=== PATIENT | male | born 1965 | race Caucasian/White ===

== ENCOUNTER 2019-08-10 14:21 | Inpatient (IN) | payer BC ==
[~2019-08-10] VITALS: Ht 190.5 cm; Wt 92.7 kg
[2019-08-10] MEDS ORDERED: BUPROPION HCL75 MG (14:27)
[2019-08-10 14:42] LABS: BASOPHILS 0.2 % (0-2); EOSINOPHILS 0.6 % (0-7); HEMATOCRIT 39.8 % (42.0-54.0); HEMOGLOBIN 12.6 g/dL (13.5-17.5); IMMATURE GRANULOCYTES 0.2 % (0-5); MCH 29.4 pg (26.0-34.0); MCHC 31.7 g/dL (31.0-37.0); MCV 92.8 fL (80.0-100.0); MEAN PLATELET VOLUME 9.2 fL (7.4-10.4); MONOCYTES 9.5 % (2-11); NEUTROPHILS 80.5 % (40-80); PLATELET COUNT 196 10x3/uL (130-400); RBC 4.29 10x6/uL (4.20-6.10); RDW 13.9 % (11.5-14.5); WBC 9.3 10x3/uL (4.8-10.8)
[2019-08-10 14:50] LABS: ANION GAP 8.1 mmol/L (8-16); CALCIUM 8.1 mg/dL (8.5-10.1); CARBON DIOXIDE 30.1 mmol/L (21.0-32.0); CREATININE - SERUM 1.1 mg/dL (0.6-1.3); POTASSIUM - SERUM 4.2 mmol/L (3.5-5.1)
[2019-08-10 14:56] LABS: ALBUMIN 3.4 g/dL (3.4-5.0); BILIRUBIN - TOTAL 0.47 mg/dL (0.2-1.3); PROTEIN - SERUM 6.9 g/dL (6.4-8.2)
[2019-08-10 15:43] LABS: BILIRUBIN NEGATIVE (NEGATIVE); GLUCOSE NEGATIVE (NEGATIVE); KETONE NEGATIVE (NEGATIVE); NITRITE NEGATIVE (NEGATIVE); UROBILINOGEN 4 mg/dL (NORMAL)
[2019-08-10 15:46] LABS: INR 1.11 (0.85-1.17); PROTIME 14.2 SECONDS (11.6-15.0)
[2019-08-10] MEDS ORDERED: BUPROPION XL300 MG PO (17:00)
[2019-08-10] MEDS ORDERED: SIMVASTATIN (17:01)
[2019-08-10] MEDS ORDERED: AMBIEN10 MG PO (17:01)
[2019-08-10] MEDS ORDERED: OMEPRAZOLE40 MG PO (17:01)
[2019-08-10] MEDS ORDERED: MINIPRESS 5 MG C5 MG PO (17:02)
[2019-08-10] MEDS ORDERED: SYNTHROID50 MCG PO (17:26)
[2019-08-10] MEDS ORDERED: ZOCOR40 MG PO (23:03)
[2019-08-10] MEDS ORDERED: VIAGRA100 MG PO (23:09)
[2019-08-10 23:22] VITALS: BP 140/70; Ht 190.5 cm; Wt 92.7 kg
--- NOTE | 2019-08-11 02:54 | NUR ---
ALERT AND ORENTED SCD'S IN PLace taking fluids well. dilaudid remote coders in place for pain control. iv to right forearm with ns at 125 no s/s of distress call light in reach at bedside
[2019-08-11 04:00] VITALS: BP 117/68
--- NOTE | 2019-08-11 07:44 | NUR ---
PT IS RESTING IN BED WITH EYES OPEN. RESPIRATIONS ARE EVEN AND UNLABORED. PT IS AAO X 4. SPOUSE AT BEDSIDE. PT REPORTS SLIGHT URGE TO VOID AND REQUESTS ASSISTANCE WITH AMBULATING TO SINK FOR MORNING HYGIENE. JAMES DRAIN NOTED LLQ DRESSING IS CDI. BULB IS COMPRESSED WITH LIGHT RED FLUID NOTED TO COLLECTION BULB. PT DENIES HAVING FLATUS SINCE SURGERY. LAP SITES X 2 NOTED TO ABDOMEN. BS ARE HYPOACTIVE X 4. PT DENIES PRESENCE OF N/V. LOW PRESSURE BOILER OPERATOR DIALUDID AVAILABLE PER ORDER. BED IS IN THE LOWEST POSITION. CALL LIGHT AND BEDSIDE TABLE ARE WITHIN REACH. SIDE RAILS X 2. FALL PRECAUTIONS IN PLACE. PT DENIES FURTHER NEEDS. WILL CONT TO MONITOR.
[2019-08-11 09:07] VITALS: BP 123/68
--- NOTE | 2019-08-11 10:00 | NUR ---
PT AMBULATES 200FT WITHOUT DIFFICULTY. PT DENIES PRESENCE OF DIZZINESS/N/V/DYSPNEA/SOB.
[2019-08-11 14:19] VITALS: BP 147/79
[2019-08-11 17:00] VITALS: BP 121/66
--- NOTE | 2019-08-11 17:14 | HP ---
PATIENT: ANDI URRUTIA MEDICAL RECORD: [id number] ACCOUNT: [id number] LOCATION:[facility] : 69 ADMISSION DATE: 08/10/19 PCP: LY BANKS MD HISTORY AND PHYSICAL EXAMINATION CHIEF COMPLAINT: Abdominal pain. HISTORY OF PRESENT ILLNESS: The patient has had right lower quadrant abdominal pain for 48-72 hours, so we do not need to put this operation off until the morning. He has on CT scan, which was read a little after noon, what appears to be a non-ruptured acute appendicitis. The patient was transferred here from [place]. He has had no prior abdominal operations. He does have peritonitis to percussion. Palpation aggravates. Nothing alleviates. He does have peritonitis to percussion. HOME MEDICINES: Wellbutrin, simvastatin, omeprazole, Ambien as well as others. ALLERGIES: No known drug allergies. SOCIAL HISTORY: The patient does not smoke. PAST SURGICAL HISTORY: History of tonsillectomy, history of left knee arthroscopy, history of fracture to left arm. PAST MEDICAL HISTORY: Depression, hypercholesterolemia, gastroesophageal reflux disease, and insomnia. REVIEW OF SYSTEMS: Palpation aggravates. Nothing alleviates. He does have peritonitis to percussion. No heart problems. No high blood pressure. No fainting or seizures. No rheumatic fever. No diabetes, no thyroid problems, no respiratory disease. No shortness of breath. PHYSICAL EXAMINATION: GENERAL: The patient does not appear acutely ill. He does not appear chronically ill. VITAL SIGNS: Reviewed. EARS: External ears appear normal. EYES: Extraocular movements are intact. NECK: Trachea is midline. CHEST: No intercostal retractions. PULMONARY: Nonlabored. No stridor. ABDOMEN: Right lower quadrant tenderness with guarding. EXTREMITIES: No peripheral cyanosis. INTEGUMENT: No rash. He has a large hairy nevus of the left lateral leg. IMPRESSION: Acute appendicitis with localized peritonitis. PLAN: Laparoscopic appendectomy, possible open procedure. The risks, possible complications, and alternatives to the procedure were explained to the patient. He elects to proceed. Discussion specifically included, but was not limited to, bleeding requiring emergency reoperation, infection, perforation, and intestinal injury. TRANSINT:[id number] Voice Confirmation ID: [id number] DOCUMENT ID: [id number] HISTORY AND PHYSICAL [id number] ANDI URRUTIA KENDELL SANDRA at 1714 CC: [id number] DICTATION DATE: 08/10/191711 GRIND OPERATOR: 08/10/19 2006 ADM IN [facility] [address] [id number]
--- NOTE | 2019-08-11 17:14 | OP ---
PATIENT NAME: ANDI URRUTIA MEDICAL RECORD: [id number] :69 LOCATION:D[id number] ADMISSION DATE:08/10/19 SURGEON: KENDELL PATEL MD DATE OF OPERATION: 08/10/2019 PREOPERATIVE DIAGNOSIS: Acute appendicitis with localized peritonitis. POSTOPERATIVE DIAGNOSIS: Gangrenous perforated appendicitis with localized peritonitis and abscess. PROCEDURE: Laparoscopic appendectomy. SURGEON: Kendell Patel MD PAEDIATRICIAN: None. BLOOD LOSS: 15 cc. ANESTHESIA: General. COMPLICATIONS: None. DRAINS: Times 1 (10-Luxembourgish round fully fluted closed suction drain). The risks, possible complications, and alternatives to the procedure were explained to the patient. He elects to proceed. OPERATIVE COURSE: The patient was conveyed to operating room emergently on 08/10/2019. General anesthesia was induced by anesthesia staff. The abdomen was sterilely prepped and draped. Skin incision was accomplished in the left upper quadrant. I then advanced the Optiview device and entered the peritoneal cavity under direct vision with the Optiview device. CO2 insufflation was begun. Once a sufficient pneumoperitoneum had been achieved under direct internal vision utilizing television camera, a 5-mm trocar was inserted through an incision in the left lower quadrant. A 12-mm trocar was inserted through an incision at the umbilicus. During insertion of the trocars, there appeared to have been no injury to the bowels, any intraperitoneal or retroperitoneal structures. Abdominal survey was undertaken. The patient had bilateral small indirect inguinal hernias. I began my dissection along the right white line of Toldt. I continued my dissection caudad. We entered an abscess cavity. I aspirated some of the pus for cultures. I continued my dissection. I freed up some of the ileum that was stuck to the right lower quadrant sidewall. I mobilized the appendix bluntly. A window was created in the mesoappendix. I then took an Endo-JULIANNE type stapler with a blue load and stapled across the appendix. I took down the mesoappendix with the laparoscopic EnSeal device. The appendix was placed within a bag retrieval device and was brought through the umbilical fascia defect. In the right lower quadrant, I irrigated and aspirated. I examined the appendiceal stump further and I was little unsure of the durability of staple line. It was in some pretty inflamed tissue and I thought I could go more OPERATIVE REPORT [id number] ANDI URRUTIA proximally with the stapler. I grasped the staple line and the stump and pulled these anteriorly. Behind my grasper, I placed the Endo-JULIANNE stapler with a blue load and then fired it. This removed the stump and I was clearly at the base of the appendix and perhaps second portion of the cecum as well. Staple line looked very good. The secondary appendiceal specimen was placed in another bag retrieval device and was withdrawn through the umbilical fascia defect. I irrigated and aspirated the right lower quadrant and in the pelvis. There was no bleeding even at a low pressure of 8. A 10-Luxembourgish round fully fluted closed suction drain was then placed down into the pelvis through the left lower quadrant trocar. Utilizing the Rafael-Baudilio suture closure device and 0 Vicryl sutures, I closed the umbilical fascia defect. The drain was sutured to the skin with 2-0 Nylon. The skin at the umbilicus was closed with interrupted 4-0 Vicryl Rapide sutures. The skin at the 5-mm trocar sites was closed with interrupted intracuticular 3-0 Vicryls. Benzoin and Steri-Strips were applied. The patient was then extubated and conveyed to post-anesthesia care unit where he was in stable condition. He will be kept in the hospital for a few days on IV antibiotics as he is at a significant risk for postoperative complications such as an abscess as he had already perforated and the abscess was present at time of this operation. TRANSINT:[id number] Voice Confirmation ID: [id number] DOCUMENT ID: [id number] KENDELL PATEL MD at 1714 CC: [id number] DICTATION DATE: 08/10/191928 SKIP OPERATOR: 08/11/19 0213 ADM IN [facility] [address] [place] [address]
[2019-08-11 20:00] VITALS: BP 130/73
--- NOTE | 2019-08-12 01:02 | NUR ---
ALERT AND ORENTED ABLE TO VOICE NEEDS AND WANTS TO STAFF. POST OP DAY ONE OF LAPAROSOPIC APPENDECTOMY UP WALKING IV TO RIGHT FOREARM WITH NA AT 125 AND DILAUDID DATA CENTER CONSULTANT FOR PAIN TWO LAP SITES AND JAMES DRAIN WITH BLODY DRANAGE DRESSING INTACT ROOM AIR WATER AND CALL LIGHT IN REACH NO NEEDS AT THIS TIME
[2019-08-12 08:27] VITALS: BP 156/97
--- NOTE | 2019-08-12 10:36 | NUR ---
PT ALERT X 4. BREATH SOUNDS CLEAR BILAT. IV TO RIGHT FOREARM, PATENT, DRESSING CDI. JAMES DRAIN TO LLQ, 40 ML PINK OUTPUT, DRESSING CDI. LAP SITES TO ABDOMEN. PT REPORTING PAIN OF 3/10, COMMUNICATIONS CLERK IN USE, WILL CONTINUE TO MONITOR. SCD'S IN USE. BED LOW, CALL LIGHT IN REACH. NO OTHER NEEDS AT THIS TIME.
[2019-08-12 13:15] VITALS: BP 149/76
[2019-08-12 17:46] VITALS: BP 132/60
--- NOTE | 2019-08-12 19:00 | NUR ---
BEDSIDE REPORT RECEIVED AND CARE OF PT ASSUMED. PT AMBULATING IN THE HALLWAY AT THIS TIME WITH SPOUSE. IV TO RIGHT FA PATENT WITH NS INFUSING AT 125 ML/HR. PRESSING DEPARTMENT SUPERVISOR W/ DILAUDID IN USE FOR PAIN CONTROL. WILL MONITOR FOR NEEDS.
[2019-08-12 20:00] VITALS: BP 138/74
--- NOTE | 2019-08-12 21:10 | NUR ---
RECEIVED ORDER FOR 60 ML MOM X ONE DOSE NOW.
--- NOTE | 2019-08-12 21:24 | NUR ---
HS MEDICATIONS GIVEN TO INCLUDE 60 ML MOM PER ONE TIME ORDER.
--- NOTE | 2019-08-12 23:31 | NUR ---
EMPTIED 50 ML OF SEROUS DRAINAGE FROM JAMES DRAIN.
[2019-08-13 04:00] VITALS: BP 164/83
[2019-08-13 07:25] LABS: BASOPHILS 0.2 % (0-2); EOSINOPHILS 0.9 % (0-7); HEMATOCRIT 34.5 % (42.0-54.0); HEMOGLOBIN 10.9 g/dL (13.5-17.5); IMMATURE GRANULOCYTES 0.4 % (0-5); LYMPHOCYTES 19.7 % (15-50); MCH 28.8 pg (26.0-34.0); MCHC 31.6 g/dL (31.0-37.0); MCV 91.3 fL (80.0-100.0); MEAN PLATELET VOLUME 9.5 fL (7.4-10.4); MONOCYTES 14.9 % (2-11); NEUTROPHILS 63.9 % (40-80); RBC 3.78 10x6/uL (4.20-6.10); RDW 13.4 % (11.5-14.5); WBC 8.2 10x3/uL (4.8-10.8)
[2019-08-13 07:32] LABS: PLATELET COUNT 238 10x3/uL (130-400)
[2019-08-13 07:46] LABS: ALBUMIN 2.4 g/dL (3.4-5.0); ALKALINE PHOSPHATASE 124 U/L (30-120); ALT (SGPT) 32 U/L (10-68); BILIRUBIN - TOTAL 0.52 mg/dL (0.2-1.3); CALC OSMOLALITY 274 mosm/kg (275-300); CALCIUM 8.1 mg/dL (8.5-10.1); CARBON DIOXIDE 30.4 mmol/L (21.0-32.0); CHLORIDE - SERUM 105 mmol/L (98-107); GLUCOSE 92 mg/dL (74-106); MAGNESIUM - SERUM 1.9 mg/dL (1.8-2.4); PHOSPHOROUS 3.2 mg/dL (2.5-4.9); POTASSIUM - SERUM 4.3 mmol/L (3.5-5.1); PROTEIN - SERUM 5.6 g/dL (6.4-8.2); SODIUM 138 mmol/L (136-145); UREA NITROGEN 10 mg/dL (7-18); eGFR NON AFRICAN AMERICAN 83 mL/min (90-120)
[2019-08-13 09:35] VITALS: BP 136/60
--- NOTE | 2019-08-13 10:17 | NUR ---
PT ALERT X 4. BREATH SOUNDS CLEAR BILAT. IV TO RIGHT FOREARM, SALINE LOCKED AT THIS TIME. JAMES DRAIN TO LLQ, LAP SITES. PT REPORTING PAIN OF 4/10, MEDICATED PER ORDERS, TRANSITIONING FROM SENIOR SUPPLY CHAIN ANALYST TO ORAL PAIN MEDICATIONS. PT EXPECTING DC HOME TODAY. AT BEDSIDE. BED LOW, CALL LIGHT IN REACH. NO OTHER NEEDS AT THIS TIME.
[2019-08-13] MEDS ORDERED: HYDROCODON-ACE1 EAC7 PO (12:14)
[2019-08-13] MEDS ORDERED: FLAGYL500 MG PO (12:15)
[2019-08-13] MEDS ORDERED: CIPRO500 MG PO (12:15)
[2019-08-13] MEDS ORDERED: COLACE100 MG PO (12:15)
[2019-08-13 12:31] VITALS: BP 132/58
--- NOTE | 2019-08-13 14:22 | NUR ---
JAMES DRAIN TO LLQ REMOVED, PT TOLERATED WELL. IV TO RIGHT FOREARM DC'D, TIP INTACT. DISCHARGE PAPERWORK SIGNED, ALL QUESTIONS ANSWERED. ESCORTED OUT VIA WHEELCHAIR.
--- NOTE | 2019-08-13 17:01 | NUR ---
WASTED 16ML OF DILAUDID ACCREDITED LEGAL SECRETARY. PT ALREADY OUT OF PYXIS. WITNESSED BY DAYDAY MÉNDEZ.
== END 2019-08-13 14:25 | disposition home or self-care (01) | DRG 340 ==
LOC: D.ER 14:21 → D.MS 19:20 → D.ER 23:55 → D.MS 23:59
PROVIDERS: Family Medicine; ADMIT Surgery; ATTEND Surgery
PROC: 0DTJ4ZZ Resection of Appendix, Percutaneous Endoscopic Approach (ICD-10-PCS; principal; 2019-08-10 16:00)
DX: K35.33 Acute appendicitis with perforation, localized peritonitis, and gangrene, with abscess (principal); F32.9 Major depressive disorder, single episode, unspecified; K21.9 Gastro-esophageal reflux disease without esophagitis; G47.00 Insomnia, unspecified

== ENCOUNTER → 2019-08-24 11:13 | Outpatient (CLI) | payer BC ==
[2019-08-10 23:22] VITALS: BMI 25.5
--- NOTE | ~2019-08-24 | DS ---
PATIENT:ANDI URRUTIA :69 MEDICAL RECORD: [id number] DISCHARGE SUMMARY ADMISSION DATE: 08/24/19 DISCHARGE DATE: 08/24/19 DISCHARGE SUMMARY PRINCIPAL DIAGNOSES: Gangrenous perforated appendicitis with localized peritonitis and abscess. PRINCIPAL PROCEDURE: Laparoscopic appendectomy. The patient was admitted through the Emergency Room. He had been having pain for 48-72 hours. He has been transferred here from [place]. OTHER DIAGNOSES: Include depression, hypercholesterolemia, gastroesophageal reflux, insomnia, history of tonsillectomy, history of left knee arthroscopy, history of left arm fracture. HOSPITAL COURSE: He underwent the above operative procedure. Postoperatively, his pain was controlled with narcotic analgesia. He was continued on IV antibiotics and then dismissed home. Discharge instructions were given to the patient verbally by me. He was to follow up with me in the office. Pathology on the appendix revealed acute necrotizing appendicitis with necrotizing acute serositis. TRANSINT:[id number] Voice Confirmation ID: [id number] DOCUMENT ID: [id number] KENDELL PATEL MD CC: [id number] DICTATION DATE: 08/28/19 0053 CIVIL PREPAREDNESS TRAINING OFFICER: 08/28/19 0407 DEP CLI 08/24/19 [place] [id number] [place] [id number]
[~2019-08-24 11:13] MED LIST: AMBIEN10 MG PO; BUPROPION HCL75 MG; BUPROPION XL300 MG PO; CIPRO500 MG PO; COLACE100 MG PO; FLAGYL500 MG PO; HYDROCODON-ACE1 EAC7 PO; MINIPRESS 5 MG C5 MG PO; OMEPRAZOLE40 MG PO; SIMVASTATIN; SYNTHROID50 MCG PO; VIAGRA100 MG PO; ZOCOR40 MG PO
== END | disposition home or self-care (01) ==
LOC: D.CT 11:13
PROVIDERS: ATTEND Surgery
DX: K35.32 Acute appendicitis with perforation, localized peritonitis, and gangrene, without abscess (principal)